=== PATIENT | male | born 1965 | race Caucasian/White ===

== ENCOUNTER 2017-05-11 11:30 | Observation (INO) | payer OTHER ==
[~2017-05-11] VITALS: Ht 180.3 cm; Wt 88.5 kg
--- NOTE | ~2017-05-11 | 2DMMODE ---
[facility] [address] [place] [address] 2 D/M-MODE ECHOCARDIOGRAM Name: DINAH HERNANDEZ Room #: 457-P [facility] IN ..#: [id number] Admission: 05/11/17 Attend Phys: Manjit Brunner MD Discharge: Date of : 63 Date of Service: 05/12/17 1008 Report #: [id number] THIS REPORT FOR: //name// APPROVED REPORT Study performed: 05/12/2017 09:09:57 EXAM: Comprehensive 2D, Doppler, and color-flow Echocardiogram Patient Location: Bedside Room #: [facility] Status: routine Other Information Study Quality: Adequate/low parasternal window Indications Chest pain, LV funtion. Hx: SSS, Pacemaker, CAD, tobacco abuse 2D Dimensions RVDd: 39.63 mm LVEF(%): 51.52 (>50%) IVSd: 11.16 (7-11mm) LVOT Diam: 23.93 (18-24mm) LVDd: 54.24 mm PWd: 8.56 (7-11mm) LVDs: 39.81 (25-40mm) Aortic Root: 41.54 mm Dailey's LVEF: 51.52 % Volumes Left Atrial Volume (Systole) Single Plane 4CH: 31.24 mL Single Plane 2CH: 59.56 mL LA ESV Index: 23.00 mL/m2 Aortic Valve AoV Peak Adria.: 1.32 m/s AO Peak Gr.: 6.95 mmHg LVOT Max P.59 mmHg LVOT Max V: 0.95 m/s GLORIA Vmax: 3.23 cm2 Mitral Valve E/A Ratio: 1.5 MV Decel. Time: 174.39 ms MV E Max Adria.: 0.76 m/s MV A Adria.: 0.50 m/s MV PHT: 50.57 ms IVRT: 83.[address] [facility] [place] [address] 2 D/M-MODE ECHOCARDIOGRAM Name: DINAH HERNANDEZ VAHE Room #: 457-P [facility] IN .R.#: [id number] Admission: 05/11/17 Attend Phys: Manjit Brunner MD Discharge: Date of : 63 Date of Service: 05/12/17 1008 Report #: [id number] Pulmonary Valve PV Peak Adria.: 0.84 m/s PV Peak Gr.: 2.79 mmHg Pulmonary Vein P Vein S: 0.38 m/s P Vein A: 0.22 m/s P Vein D: 0.41 m/s P Vein A Dur.: 110.7 msec P Vein S/D Ratio: 0.93 Tricuspid Valve TR Peak Adria.: 2.60 m/s RAP Estimate: 5.00 mmHg TR Peak Gr.: 26.94 mmHg PA Pressure: 32.00 mmHg Left Ventricle The left ventricle is normal size. There is normal LV segmental wall motion. There is normal left ventricular wall thickness. Left ventricular systolic function is normal. LVEF is 50-55%. The left ventricular diastolic function is normal. Right Ventricle The right ventricle is normal size. The right ventricular systolic function is normal. Pacemaker lead is present in the right ventricle. Atria The left atrium size is normal. The right atrium size is normal. Aortic Valve The aortic valve is normal in structure. Mild to moderate aortic regurgitation. There is no aortic valvular stenosis. Mitral Valve The mitral valve is normal in structure. Mild mitral regurgitation. Tricuspid Valve The tricuspid valve is normal in structure. There is mild tricuspid regurgitation. The right atrial pressure is estimated at 5 mmHg. There is mild pulmonary hypertension with an estimated PAP of 32mmHg. Pulmonic Valve The pulmonary valve is normal in structure. There is no pulmonic valvular regurgitation. [address] [address] 2 D/M-MODE ECHOCARDIOGRAM Name: DINAH HERNANDEZ Room #: 457-P [facility] IN ..#: [id number] Admission: 05/11/17 Attend Phys: Manjit Brunner MD Discharge: Date of : 63 Date of Service: 05/12/17 1008 Report #: [id number] Great Vessels Aortic root is dilated at the level of the sinuses at 4.2cm Ascending aorta is not well visualized. IVC is normal in size and collapses >50% with inspiration. Pericardium There is no pericardial effusion. <Conclusion> Left ventricular systolic function is normal. There is normal LV segmental wall motion. LVEF is 50-55%. The aortic valve is grossly normal in structure, incompletely imaged. Mild to moderate aortic regurgitation, no stenosis. The mitral valve is normal in structure. Mild mitral regurgitation. Pulmonary artery pressure of 32mmHg There is no pericardial effusion. <ELECTRONICALLY SIGNED> By: Basim Villarreal MD, FACC 05/12/17 1008 1008 1008 Basim Villarreal MD, FACC /INF
--- NOTE | ~2017-05-11 | CATHLAB ---
[place] [address] [address] INVASIVE PROCEDURE REPORT Name: DINAH HERNANDEZ Room #: 457-P ADM IN ..#: [id number] Admission: 05/11/17 Attend Phys: Manjit Brunner MD Discharge: Date of : 63 Date of Service: 05/12/17 0933 Report #: [id number] THIS REPORT FOR: //name// APPROVED REPORT Patient Details Patient Status: In-Patient Room #: 457 The patient is a 51 year-old male Event Personnel Carlos Posey Child Care Associate Teacher, Judy Talamantes El-Ghussein, Yasmeen RN RN, Karen Pearce Scrjewels Procedures Performed Left Heart Cath w/or w/o Coronaries [id number] [facility] Indication Chest pain Risk Factors Hypercholesterolemia, Hypertension Procedure Narrative The patient was brought electively to the Cardiac Catheterization Laboratory and was prepped and draped in a sterile manner. The Right Groin^ was infiltrated with 1% Lidocaine subcutaneous anesthesia. A PINNACLE 4FR Sheath #[id number] sheath was inserted into the RFA^. Coronary angiography was performed using coronary diagnostic catheters. The right coronary system was accessed and visualized with a 4FR AR MOD #[id number] catheter. The left coronary system was accessed and visualized with a 4FR JL 5.0 #[id number] catheter. The left ventricle was accessed and visualized with a Diagnostic catheter. Left ventricular/Aortic Valve gradient assessed via catheter pullback. Left ventriculogram was performed in MARTINO projection. Hemostasis was obtained with manual pressure following sheath removal without any complications. The patient tolerated the procedure well and there were no complications associated with the procedure. There was no hematoma. Intraoperative Conscious Sedation Sedation start time: 758 Case end Time: 835 Fentanyl 75.0 mcg Versed 2.0 mg Fluoro Time: 4.42 minutes [facility] [address] [place] [address] INVASIVE PROCEDURE REPORT Name: DAVIDDINAH COTTER Room #: 457-P [facility] IN .R.#: [id number] Admission: 05/11/17 Attend Phys: Manjit Brunner MD Discharge: Date of : 63 Date of Service: 05/12/17 0933 Report #: [id number] Dose: DAP 5789 cGycm2 738 mGy Contrast Type and Amount: Omnipaque 140 ml Coronary Angiography The patient's coronary anatomy is right dominant. Diagnostic Cath Left Main Patent with no flow-limiting lesions. LAD Moderate caliber vessel, extending around the apex and terminating in the distal inferior wall. There are no flow-limiting lesions in the LAD. Within the mid segment, there is mild disease, less than 20%. Circumflex Supplies one moderate size obtuse marginal artery, with no flow-limiting lesions. Right Coronary Right dominant, with no flow-limiting lesions. There are minimal luminal irregularities noted in the midsegment. R PDA Patent PDA. RPLV Patent RPL Left Ventriculography The left ventricular ejection fraction is estimated to be 50%. Left ventricular wall motion abnormalities are not present. Hemodynamics The aortic pressure is 112/67 mmHg with a mean of 87 mmHg. The left ventricular pressure is 112/13 mmHg with a mean of mmHg. The left ventricular end diastolic pressure is 20 mmHg. There was no gradient across the aortic valve upon pullback. Pullback from the left ventricle to the aorta revealed no gradient across the aortic valve. Conclusion Minimal plaquing noted in the mid LAD. Recommend medical therapy. Recommendations Medical Therapy <ELECTRONICALLY SIGNED> By: Carlos Posey MD 05/12/1733 2 2 Carlos Posey MD /INF
--- NOTE | ~2017-05-11 | EKG ---
[address] [place] [address] ELECTROCARDIOGRAM REPORT Name: DINAH HERNANDEZ Room #: 457-P ADM IN M.R.#: [id number] Admission: 05/11/17 Attend Phys: Manjit Brunner MD Discharge: Date of : 63 Report #: [id number] THIS REPORT FOR: //name// [facility] ED Test Date: 2017-05-11 Test Time: 11:32:05 Pat Name: DINAH HERNANDEZ Department: Room: [facility] Gender: M [employer] Inspector: KKODJOVI : 1965 Requested By: Kiara Tolentino Order Number: [id number] MD: Basim Villarreal Measurements Intervals Ethel Rate: 64 P: 47 GA: 142 QRS: 3 QRSD: 107 T: -21 QT: 373 QTc: 385 Interpretive Statements Sinus rhythm Abnormal R-wave progression, early transition Borderline T abnormalities, inferior leads Compared to ECG 07/25/2015 09:24:45 No significant change was found Electronically Signed On 05-12-2017 8:22:50 CDT by Basim Villarreal [email or web address] <ELECTRONICALLY SIGNED> By: Basim Villarreal MD, [facility] 05/12/17 0822 1132 1132 Basim Villarreal MD, [facility] /EPI
[~2017-05-11 11:30] MED LIST: ASPIR 8181 MG PO; PROTONIX 20 MG20 M1 PO
[2017-05-11 11:35] VITALS: BP 115/71
[2017-05-11] MEDS ORDERED: ASPIR 8181 MG PO (12:01)
[2017-05-11 12:02] LABS: ABSOLUTE NEUTROPHILS 5.7 thou/uL (1.4-8.2); BASOPHILS 0.4 % (0.0-2.0); EOSINOPHILS 2.5 % (0.0-3.0); HEMATOCRIT 41.2 % (42.0-52.0); HEMOGLOBIN 14.5 gm/dL (14.0-18.0); LYMPHOCYTES 22.9 % (24.0-44.0); MCH 31.7 pg (26.0-34.0); MCHC 35.3 g/dL (28.0-37.0); MCV 89.8 fL (80.0-100.0); MONOCYTES 5.7 % (1.0-8.0); PLATELET COUNT 203 thou/uL (150-400); POLYS 68.5 % (36.0-66.0); RBC 4.59 mil/uL (4.50-6.00); RDW 13.5 % (10.5-14.5); WBC 8.4 thou/uL (4.0-11.0)
[2017-05-11 12:03] LABS: MANUAL DIFF NO
[2017-05-11 12:10] LABS: ANION GAP 7 mmol/L (7-16); BUN 18 mg/dL (7-18); CALCIUM 8.7 mg/dL (8.5-10.1); CHLORIDE 105 mmol/L (98-107); CO2 28 mmol/L (21-32); CREATININE 1.2 mg/dL (0.7-1.3); GLUCOSE 107 mg/dL (74-106); POTASSIUM 3.9 mmol/L (3.5-5.1); SODIUM 140 mmol/L (136-145)
[2017-05-11 12:18] LABS: TROPONIN-I < 0.04 ng/mL (<0.04-0.07)
[2017-05-11 14:36] VITALS: BP 120/75
[2017-05-11 15:31] VITALS: BP 124/74
[2017-05-11 19:43] VITALS: BP 114/61
[2017-05-11 23:50] VITALS: BP 112/65
[2017-05-12] VITALS (7 sets, daily range): BP systolic 107–127; BP diastolic 57–80
[2017-05-12 01:41] LABS: HEMATOCRIT 40.2 % (42.0-52.0); HEMOGLOBIN 13.7 gm/dL (14.0-18.0); MCH 30.7 pg (26.0-34.0); MCHC 34.1 g/dL (28.0-37.0); RBC 4.46 mil/uL (4.50-6.00); RDW 13.4 % (10.5-14.5); WBC 7.4 thou/uL (4.0-11.0)
[2017-05-12 01:55] LABS: ANION GAP 7 mmol/L (7-16); BUN 18 mg/dL (7-18); CALCIUM 8.6 mg/dL (8.5-10.1); CHLORIDE 107 mmol/L (98-107); CHOLESTEROL 163 mg/dL (<200); CO2 28 mmol/L (21-32); CREATININE 1.2 mg/dL (0.7-1.3); GLUCOSE 100 mg/dL (74-106); HDL CHOLESTEROL 33 mg/dL (>40); LDL CHOLESTEROL 114 mg/dL (<100); POTASSIUM 4.2 mmol/L (3.5-5.1); SODIUM 142 mmol/L (136-145); TC:HDL 4.9 Ratio (Not establshd); TRIGLYCERIDE 81 mg/dL (<150); TROPONIN-I < 0.04 ng/mL (<0.04-0.07); VLDL 16 mg/dL (<40)
[2017-05-12 01:56] LABS: SERUM ASSESSMENT Clear
[2017-05-12] MEDS ORDERED: PROTONIX40 M1 PO (14:51)
== END 2017-05-12 16:27 | disposition home or self-care (01) ==
LOC: ER 11:30 → EROBS 14:14 → 4W 14:14
PROVIDERS: Emergency Medicine; Hospitalist
PROC: 4A023N7 Measurement of Cardiac Sampling and Pressure, Left Heart, Percutaneous Approach (ICD-10-PCS; principal; 2017-05-12)
PROC: B2111ZZ Fluoroscopy of Multiple Coronary Arteries using Low Osmolar Contrast (ICD-10-PCS; principal; 2017-05-12)
PROC: B2151ZZ Fluoroscopy of Left Heart using Low Osmolar Contrast (ICD-10-PCS; principal; 2017-05-12)
DX: I25.10 Atherosclerotic heart disease of native coronary artery without angina pectoris (principal); R07.89 Other chest pain; K21.9 Gastro-esophageal reflux disease without esophagitis; I49.5 Sick sinus syndrome; F41.9 Anxiety disorder, unspecified; F17.210 Nicotine dependence, cigarettes, uncomplicated; Z98.52 Vasectomy status; Z95.0 Presence of cardiac pacemaker; Z98.1 Arthrodesis status; Z71.6 Tobacco abuse counseling; Z79.899 Other long term (current) drug therapy; Z88.8 Allergy status to other drugs, medicaments and biological substances
CPT/HCPCS: 10045

== ENCOUNTER → 2018-08-03 | Outpatient (CLI) | payer OTHER ==
[~2018-08-03] MED LIST changes: +PROTONIX40 M1 PO
== END ==
LOC: RAD 10:36
DX: R07.9 Chest pain, unspecified (principal); M43.22 Fusion of spine, cervical region; R06.02 Shortness of breath; F17.200 Nicotine dependence, unspecified, uncomplicated

== ENCOUNTER → 2019-10-04 | Outpatient (CLI) | payer OTHER ==
--- NOTE | 2019-10-04 15:25 | 2DMMODE ---
[facility] [place] [address] 2 D/M-MODE ECHOCARDIOGRAM Name: DINAH HERNANDEZ Room #: REG [facility]#: [id number] Admission: 10/04/19 Attend Phys: Malik Forde Discharge: Date of : 63 Report #: [id number] THIS REPORT FOR: //name// APPROVED REPORT Study performed: 10/04/2019 14:08:48 EXAM: Comprehensive 2D, Doppler, and color-flow Echocardiogram Patient Location: Out-Patient Status: routine BSA: 2.15 HR: 66 bpm BP: 128/70 mmHg Rhythm: NSR Other Information Study Quality: Good Indications Pacemaker. Hx: SSS, mild CAD, tob use. 2D Dimensions RVDd: 40.98 mm IVSd: 10.29 (7-11mm) LVDd: 47.99 mm PWd: 9.83 (7-11mm) Ascending Ao: 36.76 (22-36mm) LVDs: 37.24 (25-40mm) Aortic Root: 44.49 mm Volumes Left Atrial Volume (Systole) Single Plane 4CH: 41.18 mL Single Plane 2CH: 62.88 mL LA ESV Index: 27.00 mL/m2 Aortic Valve AoV Peak Adria.: 1.27 m/s AO Peak Gr.: 6.45 mmHg LVOT Max P.94 mmHg LVOT Max V: 0.86 m/s Mitral Valve E/A Ratio: 1.5 MV Decel. Time: 212.44 ms MV E Max Adria.: 0.70 m/s [facility] [address] [place] [address] 2 D/M-MODE ECHOCARDIOGRAM Name: DINAH HERNANDEZ Room #: REG [facility]#: [id number] Admission: 10/04/19 Attend Phys: Malik [facility] Dis[facility]: Date of : 63 Report #: [id number] MV A Adria.: 0.48 m/s MV PHT: 61.61 ms IVRT: 96.89 ms Pulmonary Valve PV Peak Adria.: 0.90 m/s PV Peak Gr.: 3.27 mmHg Pulmonary Vein P Vein S: 0.65 m/s P Vein A: 0.30 m/s P Vein D: 0.60 m/s P Vein A Dur.: 138.4 msec P Vein S/D Ratio: 1.08 Tricuspid Valve TR Peak Adria.: 2.51 m/s RAP Estimate: 5.00 mmHg TR Peak Gr.: 25.23 mmHg PA Pressure: 30.00 mmHg Left Ventricle The left ventricle is normal size. There is normal LV segmental wall motion. There is normal left ventricular wall thickness. Left ventricular systolic function is normal. LVEF is 55%. The left ventricular diastolic function is normal. Right Ventricle The right ventricle is normal size. The right ventricular systolic function is normal. Pacemaker lead is present in the right ventricle. Atria The left atrium size is normal. The right atrium size is normal. Aortic Valve The aortic valve is normal in structure. Moderate aortic regurgitation. There is no aortic valvular stenosis. Mitral Valve The mitral valve is normal in structure. Mild mitral regurgitation. Tricuspid Valve The tricuspid valve is normal in structure. Mild tricuspid regurgitation. Estimated PAP is 30mmHg. Pulmonic Valve The pulmonary valve is normal in structure. Trace pulmonic regurgitation. [facility] [place] [address] 2 D/M-MODE ECHOCARDIOGRAM Name: DINAH HERNANDEZ VAHE Room #: REG [facility]#: [id number] Admission: 10/04/19 Attend Phys: Malik Forde Discharge: Date of : 63 Report #: [id number] Great Vessels Aortic root is moderately dilated at 4.4cm. The ascending aorta is normal in size. IVC is normal in size and collapses >50% with inspiration. Pericardium There is no pericardial effusion. <Conclusion> The left ventricle is normal size. LVEF is 55%. Pacemaker lead is present in the right ventricle. The aortic valve is normal in structure. Moderate aortic regurgitation. The mitral valve is normal in structure. Mild mitral regurgitation. The tricuspid valve is normal in structure. Mild tricuspid regurgitation. Estimated PAP is 30mmHg. The pulmonary valve is normal in structure. Trace pulmonic regurgitation. Aortic root is moderately dilated at 4.4cm. There is no pericardial effusion. <ELECTRONICALLY SIGNED> By: Trent Hu MD 10/04/19 1524 1524 1524 Trent Hu MD /INF
== END ==
LOC: CV 11:53 → EDSTATUS 11:54 → CV 13:51
DX: I08.3 Combined rheumatic disorders of mitral, aortic and tricuspid valves (principal); I10 Essential (primary) hypertension; I47.1 Supraventricular tachycardia; Z88.0 Allergy status to penicillin; Z95.0 Presence of cardiac pacemaker

== ENCOUNTER → 2021-07-10 | Outpatient (CLI) | payer OTHER | LOC: NUC 06:36 | PROVIDERS: ATTEND Internal Medicine | DX: R07.9 Chest pain, unspecified (principal) ==

== ENCOUNTER → 2021-07-14 | Outpatient (CLI) | payer OTHER | LOC: SJCVCIMAG 13:28 | PROVIDERS: ATTEND Internal Medicine | DX: I08.3 Combined rheumatic disorders of mitral, aortic and tricuspid valves (principal); R06.00 Dyspnea, unspecified; Z95.0 Presence of cardiac pacemaker ==

== ENCOUNTER → 2021-08-01 | Outpatient (CLI) | payer OTHER ==
[~2021-08-01] VITALS: Ht 180.3 cm; Wt 101.4 kg
[~2021-08-01] MED LIST changes: +BENICAR40 MG PO; +FISH OIL 1,001000 M3 PO; +K-DUR10 MEQ PO; +LASIX 40 MG TAB40 MG PO; +LIPITOR40 MG PO; +MELOXICAM15 MG PO; +NORVASC10 MG PO; +PEPCID40 MG PO; +PRILOSEC OTC20 MG PO
[2021-08-01 08:41] VITALS: BP 108/52
[2021-08-01 08:51] LABS: HEMATOCRIT 43.6 % (42.0-52.0); HEMOGLOBIN 14.3 gm/dL (14.0-18.0); MCH 29.7 pg (26.0-34.0); MCHC 32.9 g/dL (28.0-37.0); MCV 90.2 fL (80.0-100.0); RBC 4.83 mil/uL (4.50-6.00); RDW 13.2 % (10.5-14.5); WBC 6.4 thou/uL (4.0-11.0)
[2021-08-01 08:57] LABS: CALCIUM 8.5 mg/dL (8.5-10.1); CREATININE 1.5 mg/dL (0.7-1.3); POTASSIUM 4.4 mmol/L (3.5-5.1)
--- NOTE | 2021-08-01 10:32 | EKG ---
[place] [address] [address] [place] [address] ELECTROCARDIOGRAM REPORT Name: DINAH HERNANDEZ Room #: REG CLTalia Mao#: [id number] Admission: 08/01/21 Attend Phys: Trent Hu Discharge: Date of : 63 Report #: [id number] [facility] Test Date: 2021-08-01 Test Time: 08:32:34 Pat Name: DINAH HERNANDEZ Department: Room: Gender: Child Care Worker: SBULOW : 1965 Requested By: Trent Hu Order Number: [id number] MD: Lew Ring Measurements Intervals [place] Rate: 60 P: MD: 154 QRS: 5 QRSD: 104 T: -7 QT: 390 QTc: 390 Interpretive Statements Atrial-paced rhythm Borderline T abnormalities, inferior leads Compared to ECG 05/11/2017 11:32:05 Sinus rhythm no longer present T-wave abnormality still present Electronically Signed On 08-01-2021 10:31:50 CDT by Lew Ring [email or web address] <ELECTRONICALLY SIGNED> By: Lew Ring MD, [facility] 08/01/21 1031 1 1 Lew Ring MD, [facility] /EPI
--- NOTE | 2021-08-18 11:43 | CATHLAB ---
[facility] [place] [address] INVASIVE PROCEDURE REPORT Name: DINAH HERNANDEZ Room #: REG MIRNA LyonRommel#: [id number] Admission: 08/01/21 Attend Phys: Trent Hu Discharge: Date of : 63 Report #: [id number] THIS REPORT FOR: cc: Johnathan Yao MD, Christopher MD Lammoglia, Francisco J. MD ~ APPROVED REPORT Study performed: 08/01/2021 09:39:06 Patient Details Patient Status: Out-Patient Room #: The patient is a 56 year-old male Event Personnel Trent Hu Electrical Wirer, Norma Spring RN RN, Jody Gorman Paschal, Ja'net RTR Monitor Procedures Performed Left Heart Cath w/or w/o Coronaries [id number] [facility] Art Access - R femoral artery* [id number] Initial Mod Sed Same Phys/QHP Gr5y [id number] Hemostasis with Manual pressure, supervision of conscious sedation Indication Chest pain Procedure Narrative The Right Groin^ was infiltrated with 1% Lidocaine subcutaneous anesthesia. A PINNACLE 4FR Sheath #[id number] sheath was inserted into the RFA^. Coronary angiography was performed using coronary diagnostic catheters. The right coronary system was accessed and visualized with a JR4 catheter. The left coronary system was accessed and visualized with a JL4 catheter. The left ventricle was accessed and visualized with a PIGTAIL catheter. Left ventricular/Aortic Valve gradient assessed via catheter pullback. Left ventriculogram was performed in 30 degree projection. Hemostasis was obtained with manual pressure following sheath removal without any complications. The patient tolerated the procedure well and there were no complications associated with the procedure. Intraoperative Conscious Sedation Sedation start time: 10:45 Case end Time: 11:06 [facility] [address] [place] [address] INVASIVE PROCEDURE REPORT Name: DINAH HERNANDEZ VAHE [id number] Admission: 08/01/21 Attend Phys: Trent Aguilera Discharge: Date of : 63 Report #: [id number] Versed 2 mg Fluoro Time: 1.60 minutes Dose: DAP 5348.00 cGycm2 843 mGy Contrast Type and Amount: Omnipaque 45 ml Coronary Angiography The patient's coronary anatomy is right dominant. Diagnostic Cath Left Main Large-caliber vessel of normal origin trifurcates into the left anterior descending the circumflex and a diminutive ramus intermedius vessel. No high-grade lesions are noted LAD Moderate caliber type III vessel coursing the anterior ventricular sulcus. Gives rise to diagonal and septal branches in its course. It continues on tapering hooking the apex and terminates a small caliber vessel in the posterior aspect of the ventricle. No high-grade lesions are noted only mild plaquing at the origin of the first diagonal branch Diagonal 1 Small caliber bifurcating vessel at its origin with a small diminutive branch and a moderate vessel coursing along the anterolateral aspect of the heart towards the apex but is quite long in length as it gives rise to numerous branches but free of high-grade lesions Diagonal 2 Diminutive size vessel without significant lesion Circumflex Moderate caliber vessel gives rise to an early marginal branch that then continues on is a small insignificant vessel in the posterior exophytic left ventricle. The marginal branch is moderate in caliber coursing towards the apex tortuous in its course but free of high-grade lesion OM1 Moderate caliber vessel along the lateral aspect of the heart without significant lesions noted Right Coronary Moderate caliber vessel with an inferior takeoff in the right coronary cusp. The vessel continues in the AV groove giving rise RA and RV branches proceeding in the AV groove to the crux of the heart were gives rise to posterior descending artery and terminates as a posterior lateral branch. There is mild irregularities of 30% or less noted in the proximal portions of the RCA proper R PDA Small to moderate caliber short vessel in the posterior interventricular sulcus and terminates as a bifurcating branch well before the left ventricular apex no high-grade lesions are noted Left Ventriculography [facility] [address] [place] [address] INVASIVE PROCEDURE REPORT Name: DINAH HERNANDEZ VAHE Room #: REG JORGE A Mao#: [id number] Admission: 08/01/21 Attend Phys: Trent Aguilera Discharge: Date of : 63 Report #: [id number] Left Ventriculography was not performed. Hemodynamics The aortic pressure is 115/65 mmHg with a mean of 83 mmHg. The left ventricular pressure is 120/7 mmHg with a mean of mmHg. The left ventricular end diastolic pressure is 24 mmHg. Pullback from the left ventricle to the aorta revealed no gradient across the aortic valve. Conclusion 1. Mild nonobstructive coronary disease with nonobstructive plaquing noted 2. Normal hemodynamics Recommendations Cardiac Risk Reduction Program Medical Therapy <ELECTRONICALLY SIGNED> By: Trent Hu MD 08/18/21 1143 1143 1143 Trent Hu MD /INF
== END | disposition home or self-care (01) ==
LOC: CATH 06:59
PROVIDERS: ATTEND Internal Medicine
DX: R06.00 Dyspnea, unspecified (principal); I25.10 Atherosclerotic heart disease of native coronary artery without angina pectoris; I10 Essential (primary) hypertension; E78.5 Hyperlipidemia, unspecified; K21.9 Gastro-esophageal reflux disease without esophagitis; Z98.890 Other specified postprocedural states; Z79.899 Other long term (current) drug therapy; Z87.891 Personal history of nicotine dependence; Z95.0 Presence of cardiac pacemaker; Z88.8 Allergy status to other drugs, medicaments and biological substances

== ENCOUNTER → 2021-11-21 | Outpatient (CLI) | payer OTHER ==
[~2021-11-21] MED LIST changes: +ADULT ASPIRIN R81 MG PO; +LASIX 20 MG TAB20 MG PO; +PROTONIX40 M2 PO
== END ==
LOC: LAB 09:37
PROVIDERS: ATTEND Student in an Organized Health Care Education/Training Program
DX: Z01.812 Encounter for preprocedural laboratory examination (principal); Z20.822 Contact with and (suspected) exposure to COVID-19

== ENCOUNTER → 2021-11-25 | Outpatient (CLI) | payer OTHER ==
[~2021-11-25] VITALS: Ht 180.3 cm; Wt 103.4 kg
== END | disposition home or self-care (01) ==
LOC: GI
PROVIDERS: ATTEND Internal Medicine
DX: Z12.11 Encounter for screening for malignant neoplasm of colon (principal); Z86.010 Personal history of colon polyps; K57.30 Diverticulosis of large intestine without perforation or abscess without bleeding; K64.8 Other hemorrhoids; K44.9 Diaphragmatic hernia without obstruction or gangrene; R13.19 Other dysphagia; R12 Heartburn; I10 Essential (primary) hypertension; E78.00 Pure hypercholesterolemia, unspecified; K21.9 Gastro-esophageal reflux disease without esophagitis; Z98.890 Other specified postprocedural states; Z79.899 Other long term (current) drug therapy; Z87.891 Personal history of nicotine dependence; Z90.49 Acquired absence of other specified parts of digestive tract; Z95.0 Presence of cardiac pacemaker; Z88.8 Allergy status to other drugs, medicaments and biological substances
CPT/HCPCS: 62110; 62900